=== PATIENT | female | born 1985 | race Caucasian/White ===

== ENCOUNTER 2023-01-20 08:29 | Outpatient (CLI) | payer MEDICAID, SELFPAY | END 2023-01-20 08:30 | disposition home or self-care (01) | PROVIDERS: PCP Family Medicine; Visit Provider Family Medicine | DX: Z00.00 Encounter for general adult medical examination without abnormal findings (principal); L70.9 Acne, unspecified; Z13.6 Encounter for screening for cardiovascular disorders | CPT/HCPCS: 80053; 80061 ==